=== PATIENT | male | born 1995 | race Two or more races ===

== ENCOUNTER 2019-05-04 18:53 | Emergency (ER) | payer OTHER ==
[~2019-05-04] VITALS: Ht 182.9 cm; Wt 72.7 kg
[2019-05-04] MEDS ORDERED: NAPR-885 PO (19:05)
[2019-05-04] MEDS ORDERED: OXYC15TA66 PO (19:05)
[2019-05-04] MEDS ORDERED: HYDR-3363 PO (19:05)
[2019-05-04] MEDS ORDERED: NS 1,000 ML IV ONE (19:15)
[2019-05-04 19:19] LABS: BASO % 0.3 % (0.0-1.0); EOS # 0.1 10^3/uL (0.0-0.5); EOS % 1.4 % (0.0-3.0); HEMATOCRIT 43.2 % (42.0-52.0); HEMOGLOBIN 14.2 g/dl (13.5-17.5); LYMPH # 3.2 10^3/uL (1.5-5.0); LYMPH % 32.6 % (24.0-44.0); MEAN CORPUSCULAR HGB CONC 32.9 g/dl (32.0-36.5); MEAN CORPUSCULAR VOLUME 88.2 fl (80.0-96.0); MONO # 0.8 10^3/uL (0.0-0.8); MONO % 7.5 % (0.0-5.0); NEUTROPHILS # 5.8 10^3/uL (1.5-8.5); PLATELET COUNT, AUTOMATED 314 10^3/uL (150-450); WHITE BLOOD COUNT 9.9 10^3/uL (4.0-10.0)
[2019-05-04] MEDS ORDERED: AMMONIA AROMATIC INHALANT (FLOOR STOCK) As Ordered ONE (19:52)
[2019-05-04 20:00] LABS: ACETAMINOPHEN LEVEL < 2.0 UG/ML (10.0-30.0); ALBUMIN 4.8 GM/DL (3.2-5.2); ALT/SGPT 24 U/L (12-78); BILIRUBIN,DIRECT < 0.1 MG/DL (0.0-0.2); BILIRUBIN,TOTAL 0.6 MG/DL (0.2-1.0); BLOOD UREA NITROGEN 18 MG/DL (7-18); CALCIUM LEVEL 9.3 MG/DL (8.5-10.1); CARBON DIOXIDE LEVEL 24 MEQ/L (21-32); CHLORIDE LEVEL 106 MEQ/L (98-107); CPK CREATINE PHOSPHOKINASE 257 U/L (39-308); CREATININE FOR GFR 0.94 MG/DL (0.70-1.30); ETHYL ALCOHOL (ETHANOL) < 0.003 % (0.000-0.010); GLOMERULAR FILTRATION RATE > 60.0 (>60); GLUCOSE, FASTING 93 MG/DL (70-100); POTASSIUM SERUM 3.5 MEQ/L (3.5-5.1); SALICYLATE LEVEL < 1.7 MG/DL (5.0-30.0); SODIUM LEVEL 139 MEQ/L (136-145); TOTAL PROTEIN 8.7 GM/DL (6.4-8.2)
[2019-05-04] MEDS ORDERED: LIDOCAINE 2% 5ML JELLY UROJET TOP ONE (20:15)
[2019-05-04 20:43] LABS: AMPHETAMINES LEVEL URINE NEGATIVE (NEGATIVE); BARBITURATES URINE NEGATIVE (NEGATIVE); BENZODIAZEPINES URINE NEGATIVE (NEGATIVE); CANNABINOIDS URINE NEGATIVE (NEGATIVE); COCAINE METABOLITE URINE NEGATIVE (NEGATIVE); METHADONE URINE NEGATIVE (NEGATIVE); OPIATES URINE NEGATIVE (NEGATIVE); PHENCYCLIDINE URINE NEGATIVE (NEGATIVE)
--- NOTE | 2019-05-04 21:38 | REPVR ---
PROCEDURE INFORMATION: Exam: CT Head Without Contrast Exam date and time: 05/04/2019 8:58 PM Clinical history: 23 years old, male; Altered mental status/memory loss; Confusion or disorientation; Additional info: Altered loc TECHNIQUE: Imaging protocol: Computed tomography of the head without contrast. Radiation optimization: All CT scans at this facility use at least one of these dose optimization techniques: automated exposure control; mA and/or kV adjustment per patient size (includes targeted exams where dose is matched to clinical indication); or iterative reconstruction. COMPARISON: No relevant prior studies available. FINDINGS: Brain: Normal. No hemorrhage. Unremarkable white matter. No mass effect. Ventricles: Normal. No ventriculomegaly. Bones/joints: Unremarkable. No acute fracture. Sinuses: Visualized sinuses are unremarkable. No fluid levels. Mastoid air cells: Visualized mastoid air cells are well aerated. Soft tissues: Unremarkable. IMPRESSION: Negative noncontrast head CT. Electronically signed by: Johnathon Dye On 05/04/2019 21:37:54 PM
[2019-05-04 22:00] VITALS: BP 142/73
--- NOTE | 2019-05-05 08:42 | ECGEPIP ---
[facility] - ED Test Date: 2019-05-04 Pat Name: LUBA LINTON Department: Room: - Gender: Male [place]: AYDEE : 1995 Requested By: SUKHDEEP CEDILLO Order Number: [id number] Reading MD: La Nena Storey Measurements Intervals [place] Rate: 78 P: 56 [place]: 184 QRS: 70 QRSD: 90 T: 55 QT: 346 QTc: 395 Interpretive Statements SINUS RHYTHM EARLY REPOLARIZATION, CLINICAL CORRELATION No prior Electronically Signed on 05-05-2019 8:41:32 EST by La Nena Storey
== END 2019-05-04 22:14 | disposition home or self-care (01) ==
LOC: M ED 18:53
DX: T39.311A Poisoning by propionic acid derivatives, accidental (unintentional), initial encounter (principal); Y92.9 Unspecified place or not applicable; Y93.9 Activity, unspecified; M25.569 Pain in unspecified knee; Z79.899 Other long term (current) drug therapy; Z88.8 Allergy status to other drugs, medicaments and biological substances
CPT/HCPCS: 36415; 51701; 70450; 80048; 80076; 80307; 82550; 84443; 85025; 93005; 93041; 94760; 96360; 96361; 99285; G0480

== ENCOUNTER 2019-05-09 18:52 | Inpatient (IN) | payer OTHER ==
[~2019-05-09] VITALS: Ht 182.9 cm; Wt 68.5 kg
[~2019-05-09 18:52] MED LIST: HYDR-3363 PO; NAPR-885 PO; OXYC15TA66 PO
[2019-05-09 20:07] LABS: HEMATOCRIT 42.1 % (42.0-52.0); HEMOGLOBIN 13.8 g/dl (13.5-17.5); MEAN CORPUSCULAR HEMOGLOBIN 29.4 pg (27.0-33.0); MEAN CORPUSCULAR HGB CONC 32.8 g/dl (32.0-36.5); MEAN CORPUSCULAR VOLUME 89.6 fl (80.0-96.0); PLATELET COUNT, AUTOMATED 316 10^3/uL (150-450); WHITE BLOOD COUNT 8.2 10^3/uL (4.0-10.0)
[2019-05-09 20:38] LABS: ACETAMINOPHEN LEVEL < 2.0 UG/ML (10.0-30.0); ALBUMIN 4.3 GM/DL (3.2-5.2); ALT/SGPT 29 U/L (12-78); BILIRUBIN,DIRECT 0.2 MG/DL (0.0-0.2); BILIRUBIN,TOTAL 0.9 MG/DL (0.2-1.0); BLOOD UREA NITROGEN 14 MG/DL (7-18); CALCIUM LEVEL 9.2 MG/DL (8.5-10.1); CARBON DIOXIDE LEVEL 26 MEQ/L (21-32); CHLORIDE LEVEL 105 MEQ/L (98-107); CREATININE FOR GFR 0.96 MG/DL (0.70-1.30); ETHYL ALCOHOL (ETHANOL) < 0.003 % (0.000-0.010); GLOMERULAR FILTRATION RATE > 60.0 (>60); GLUCOSE, FASTING 83 MG/DL (70-100); POTASSIUM SERUM 3.4 MEQ/L (3.5-5.1); SALICYLATE LEVEL < 1.7 MG/DL (5.0-30.0); SODIUM LEVEL 139 MEQ/L (136-145); TOTAL PROTEIN 8.3 GM/DL (6.4-8.2)
[2019-05-09 20:44] LABS: AMPHETAMINES LEVEL URINE NEGATIVE (NEGATIVE); BARBITURATES URINE NEGATIVE (NEGATIVE); BENZODIAZEPINES URINE NEGATIVE (NEGATIVE); CANNABINOIDS URINE NEGATIVE (NEGATIVE); COCAINE METABOLITE URINE NEGATIVE (NEGATIVE); METHADONE URINE NEGATIVE (NEGATIVE); OPIATES URINE NEGATIVE (NEGATIVE); PHENCYCLIDINE URINE NEGATIVE (NEGATIVE)
[2019-05-09] MEDS ORDERED: NAPR-885 PO (21:26)
[2019-05-09] MEDS ORDERED: HYDR-3363 PO (21:26)
[2019-05-09] MEDS ORDERED: POTASSIUM CHLORIDE 10 MEQ SR TABLET PO ONE (22:30)
[2019-05-09] MEDS ORDERED: MOM 30ML SUSPENSION UDC PO PRN (22:30)
[2019-05-09] MEDS ORDERED: MAALOX 30 ML SUSP *UDC PO PRN (22:30)
[2019-05-10 00:06] VITALS: BP 132/63
--- NOTE | 2019-05-10 00:23 | REP ---
Clinical: Epigastric and abdominal pain. Technique: Upright view of the chest with supine and upright views of the abdomen and pelvis. Findings: Frontal upright view of the chest demonstrates no acute cardiopulmonary process or free air below the diaphragm to suspect pneumoperitoneum. Supine and upright views of the abdomen and pelvis demonstrate nonspecific bowel gas pattern without obstruction or perforation. No organomegaly. No abnormal calcifications. Skeletal structures normal for age. Impression: Nonspecific bowel gas pattern. The Electronically Signed by Froylan Telles MD 05/10/2019 12:15 A
[2019-05-10 07:00] VITALS: BP 137/66
[2019-05-10] MEDS: PARoxetine 10MG TABLET PO SCH (09:00)
--- NOTE | 2019-05-10 15:26 | HPEPDOC ---
General Date of Admission May 09, 2019 at 22:30 Date of Service: May 10, 2019 Chief Complaint The patient is a 23-year-old male admitted with a reason for visit of Unspecified Depressive D/O. 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 He stated that the night before he Over dosed on hydoxyzine and naproxen but nothing happened and then he was thinking about shooting himself. So came to the ED for suicidal ideas. He was admitted to [facility] and I am seeing the patient here for medical history and physical. Today he complains of ppain in the upper abdomen epigastrium going on for 1 week, dull aching in nature, worse after meals about 5/10 in intensity associated with nausea. Also reports that has not had a bowel movement in 4 days , has poor appetite and is afrid to eat as it worsens the pain. Does not repot any vomiting or any loss of weight. Home Medications Scheduled PRN Hydroxyzine HCl (Hydroxyzine HCl) 25 Mg Tablet, 25 MG PO for ANXIETY, (Reported) Naproxen (Naproxen) 500 Mg Tablet, 500 MG PO BID PRN for PAIN, (Reported) Allergies Coded Allergies: mirtazapine (Verified Adverse Reaction, Unknown, nose bleed, 05/04/19) Past Medical History Medical History anxiety, depression Surgical History left knee surgery Family History Significant Family History: Cancer (mother adn maternal grandmother breat cancer, maternal grandmother also lung cancer), Heart disease (maternal grandfather) Social History * Smoker: Denies Alcohol: occationally Drugs: denies A-FIB/CHADSVASC A-FIB History Current/History of A-Fib/PAF?: No Review of Systems Constitutional: Denies: Chills, Fever, Night Sweats Eyes: Denies: Pain, Vision change ENT: Denies: Head Aches, Ear Pain, Dysphagia Skin: Denies: Rash, Lesions, Breakdown Pulmonary: Denies: Dyspnea, Cough Cardiovascular: Denies: Chest Pain, Palpitations, Orthopnea, Paroxysmal Noc. Dyspnea, Lt Headedness Gastrointestinal: Denies: Nausea, Vomiting, Abdominal Pain, Diarrhea Genitourinary: Denies: Dysuria, Frequency, Incontinence, Retention Hematologic: Denies: Bruising, Bleeding Excessively Musculoskeletal: Denies: Neck Pain, Back Pain, Joint Pain, Muscle Pain, Spasms Physical Examination General Exam: Positive: Alert, No Acute Distress Eye Exam: Positive: PERRLA, Conjunctiva & lids normal, EOMI; Negative: Sclera icteric ENT Exam: Positive: Atraumatic, Mucous membr. moist/pink, Pharynx Normal Neck Exam: Positive: Supple; Negative: JVD, thyromegaly Chest Exam: Positive: Clear to auscultation, Normal air movement Heart Exam: Positive: Rate Normal, Regular Rhythm, Normal S1, Normal S2; Negative: Murmurs, Rubs Abdomen Exam: Positive: Normal bowel sounds, Soft, Tenderness (in the epigastrium), Other (no guarding or rigidity); Negative: Hepatospenomegaly Extremity Exam: Positive: Normal pulses; Negative: Clubbing, Cyanosis, Edema Skin Exam: Positive: Nl turgor and temperature; Negative: Breakdown, Lesion Psych Exam: Positive: Anxiety, Memory Intact, Oriented x 3 Vital Signs Vital Signs Date Time Temp Pulse Resp B/P (MAP) Pulse Ox O2 Delivery O2 Flow Rate FiO2 05/10/19 07:00 99.1 72 16 137/66 (89) 05/10/19 00:06 Room Air 05/09/19 18:52 100 Laboratory Data Labs 24H Laboratory Tests 2 05/09/19 19:44: Nucleated Red Blood Cells % (auto) 0.0, Anion Gap 8, Glomerular Filtration Rate > 60.0, Calcium Level 9.2, Total Bilirubin 0.9, Direct Bilirubin 0.2, Aspartate Amino Transf (AST/SGOT) 30, Alanine Aminotransferase (ALT/SGPT) 29, Alkaline Phosphatase 113, Total Protein 8.3H, Albumin 4.3, Albumin/Globulin Ratio 1.08, Thyroid Stimulating Hormone (TSH) 1.300, Salicylates Level < 1.7L, Urine Opiates Screen NEGATIVE, Urine Methadone Screen NEGATIVE, Acetaminophen Level < 2.0L, Urine Barbiturates Screen NEGATIVE, Urine Phencyclidine Screen NEGATIVE, Urine Amphetamines Screen NEGATIVE, Urine Benzodiazepines Screen NEGATIVE, Urine Cocaine Metabolite Screen NEGATIVE, Urine Cannabinoids Screen NEGATIVE, Ethyl Alcohol Level < 0.003 CBC/BMP Laboratory Tests 05/09/19 19:44 Assessment/Plan 23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 He stated that the night before he Over dosed on hydoxyzine and naproxen but nothing happened and then he was thinking about shooting himself. So came to the ED for suicidal ideas. He was admitted to [facility] and I am seeing the patient here for medical history and physical. 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 He stated that the night before he Over dosed on hydoxyzine and naproxen but nothing happened and then he was thinking about shooting himself. So came to the ED for suicidal ideas. He was admitted to [facility] and I am seeing the patient here for medical history and physical. Today he complains of ppain in the upper abdomen epigastrium going on for 1 week, dull aching in nature, worse after meals about 5/10 in intensity associated with nausea. Abdominal pain AXR in the ED neg possibly peptic ulcer disease will start on pantoprozole and sucralfate. Psych issues as per psychiatry. Plan / VTE VTE Prophylaxis Ordered?: No (freely ambulatory) MIKE RAE MD May 10, 2019 08:01
[2019-05-10 16:20] VITALS: BP 127/81
[2019-05-10] MEDS: SUCRALFATE SUSP 1GM/10ML UD PO SCH ×2 (17:03→22:34)
--- NOTE | 2019-05-10 19:19 | MHHPE ---
DATE OF ADMISSION: 05/10/2019 CURRENT MEDICATIONS: None. CHIEF COMPLAINT: Suicidal ideation with overdose. 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 Patient has been feeling depressed for several months. Patient took an overdose of unspecified pills last week and was seen in the emergency room due to "intoxication." He claims that it was accidental. He was seen and released. He comes in today after taking another overdose of hydroxyzine and naproxen in a suicide attempt. He is disappointed that he survived. Patient has contemplated shooting himself. He does have access to arms periodically. Patient feels overwhelmed. He has multiple stressors. His mother is homeless in [place]. She is being treated for breast cancer with radiation and chemotherapy. His mother lives out of a car, along with his 7-year-old sister. Patient sends his mother most of his income from the [employer]. 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 He feels overwhelmed with his job. 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 He has no time for himself. His appetite is poor. He thinks that he has lost weight, but he is not sure. His concentration is fine. His level of energy and interest are down. Self-esteem is poor. He has trouble sleeping at night. He does have significant anxiety symptoms. He worries constantly. He cannot relax. He is always restless. He is taking the hydroxyzine for this condition. He fidgets constantly. He also has history of panic attacks with racing heart and palpitation with shortness of breath. Patient drinks at least 4-5 Monster Energy drinks per day. He also likes to consume Mountain Dew and Coca-Cola as well. Patient avoids crowded situations. Patient states he is a loner and has some social phobic symptoms. He avoids public speaking, for example. PAST PSYCHIATRIC HISTORY: Patient is being treated for anxiety symptoms at [employer] with hydroxyzine.' MEDICAL HISTORY: Injury to left knee/ACL. ALLERGIES: Patient claims to have an allergy to LORAZEPAM, causing nosebleeds (question). LEGAL HISTORY: Patient denies, CHEMICAL DEPENDENCY: Patient drinks alcohol socially. He has had a number of blackouts. He denies history of DWIs. SOCIAL HISTORY: Patient was born in [place]. His father was in the and traveled all over the country. He graduated high school in [place]. Patient has seven siblings scattered across the country. Relationship with them is not good. Relationship with his mother is good. Patient is a high school graduate. 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 FAMILY PSYCHIATRIC HISTORY: Patient denies. MENTAL STATUS EXAMINATION: Patient is alert, oriented, cooperative. Affect is sad. Mood depressed. Patient is highly anxious. The patient has suicidal ideation. Grooming and hygiene are fair. Patient is helpless and hopeless. The patient is not psychotic, not hearing voices. No signs of paranoia or thought disorder. No signs of cognitive deficits. Memory functions appear intact. LENGTH OF STAY: 7-10 days. ASSESSMENT: Patient appears to have a serious depressive disorder. He also reports multiple anxiety symptoms. He is self-medicating with high amounts of caffeine, which is likely aggravating his anxiety symptoms. DIAGNOSES: 1. Major depression, single episode. 2. Panic anxiety disorder with agoraphobia. 3. Generalized anxiety disorder. 4. Rule out social anxiety disorder. 5. Caffeine use disorder. PLAN: admission. Discontinue use of caffeinated beverages. Start a trial of Paxil to help with anxiety and depressive symptoms. Involve in hospital milieu. Staff to coordinate care with [facility] and to work on discharge planning. [facility]ENTER[facility]rya
[2019-05-10] MEDS: PANTOPRAZOLE 40MG TAB (PROTONIX) PO SCH (22:33)
[2019-05-11 06:01] VITALS: BP 123/62
[2019-05-11] MEDS: SUCRALFATE SUSP 1GM/10ML UD PO SCH ×4 (07:37→21:59)
[2019-05-11] MEDS: PARoxetine 10MG TABLET PO SCH (08:41)
[2019-05-11 16:23] VITALS: BP 138/68
[2019-05-11] MEDS: traZODone 50 MG TAB PO PRN (21:58)
[2019-05-11] MEDS: PANTOPRAZOLE 40MG TAB (PROTONIX) PO SCH (21:58)
[2019-05-12 05:57] VITALS: BP 146/65
[2019-05-12] MEDS: SUCRALFATE SUSP 1GM/10ML UD PO SCH ×4 (07:43→20:51)
--- NOTE | 2019-05-12 07:49 | MHIPN ---
DATE OF SERVICE: 05/11/2019 VITAL SIGNS: Temperature 97.7, pulse 79, respiration 18, blood pressure 123/62. CURRENT MEDICATION: - Paxil 10 mg daily a.m. HISTORY OF PRESENT ILLNESS: Patient still complains of some stomach pain. Patient was diagnosed with possible stomach ulcer/gastritis by the hospitalist. His recent overdose of medication might be contribute to these symptoms. His appetite is poor. Patient reports he has been vomiting periodically. He did sleep well last night. Patient still feels quite depressed with passive suicidal ideation. He feels helpless and hopeless at times. He worries about the future. He is drinking some wesley here so he is not going through major caffeine withdrawal. Patient has not been in touch with his family by phone. He would like to have the wireline field operator at [facility] visit, however. This is reviewed with the staff. MENTAL STATUS EXAMINATION: Patient is alert and oriented. Affect appears sad. Mood is moderately to severely depressed. He has had some passive suicidal thoughts which have come and gone but will be monitored closely. No signs of psychosis. No hearing voices. No paranoia or thought disorder. Grooming and hygiene appear good. Cognitive functions appear intact. DIAGNOSES: Major depression. Panic anxiety disorder with agoraphobia. Generalized anxiety disorder (ANALIA), rule out social anxiety disorder. Caffeine induced anxiety disorder. Rule out peptic ulcer/gastritis. PLAN: Obtain further input from hospitalist regarding GI symptoms. Monitor suicide potential closely. Continue use of Paxil for antidepressant and antianxiety benefits. Encourage involvement in hospital milieu.
[2019-05-12] MEDS: PARoxetine 10MG TABLET PO SCH (08:33)
[2019-05-12] MEDS ORDERED: diazePAM 2 MG TAB PO ONE (11:00)
[2019-05-12 16:11] VITALS: BP 125/62
[2019-05-12] MEDS: hydrOXYzine 25 MG TAB PO PRN (19:49)
[2019-05-12] MEDS: PANTOPRAZOLE 40MG TAB (PROTONIX) PO SCH (20:51)
[2019-05-12] MEDS: traZODone 50 MG TAB PO PRN (20:51)
[2019-05-13] MEDS: SUCRALFATE SUSP 1GM/10ML UD PO SCH ×5 (06:32→23:30)
[2019-05-13 06:41] VITALS: BP 123/56
--- NOTE | 2019-05-13 07:08 | MHIPN ---
DATE OF VISIT: 05/12/2019 VITAL SIGNS: Temperature 98.2, pulse 62, respirations 16, blood pressure 125/62. CURRENT MEDICATION: - Paxil 10 mg daily HISTORY OF PRESENT ILLNESS: The patient's stomach complaints have improved. He still reports anxiety. He fidgets constantly. He worries constantly He finds it hard to relax. He still reports moderate depression. He has had some passive suicidal thoughts; for example, he broke a tooth brush in half last night but did not harm himself. The staff confiscated it and are keeping him on close checks. The patient slept well last night with the trazodone. He is tolerating the Paxil well. MENTAL STATUS EXAM: The patient is alert, oriented and cooperative. He is slightly anxious, moderately depressed with passive suicidal thoughts. The patient is not psychotic. Grooming and hygiene appear good. Cognitive functions are within normal limits. DIAGNOSES: 1. Major depression. 2. Panic anxiety disorder with agoraphobia. 3. Generalized anxiety disorder (ANALIA). 4. Social anxiety disorder. 5. Caffeine induced anxiety disorder. PLAN: The patient is given one dose of Valium 2 mg. Started on trial of as needed Atarax. Increase Paxil to 20 mg daily. The staff to monitor mood and safety closely.
[2019-05-13] MEDS: hydrOXYzine 25 MG TAB PO PRN (08:42)
[2019-05-13] MEDS ORDERED: PARoxetine 20 MG TAB PO SCH (09:00)
--- NOTE | 2019-05-13 14:56 | MHIPN ---
DATE: 05/13/2019 Vital signs: Temperature: 99.4, pulse 55, respirations 16, blood pressure 123/56. CURRENT MEDICATION: - Paxil 20 mg every morning - hydroxyzine 25 mg every 4 hours as needed - trazodone 50 mg at bedtime HISTORY OF PRESENT ILLNESS: Patient was feeling more depressed yesterday evening, he had suicidal thoughts, he scratched his wrist with a broken toothbrush. He wrote a suicide note and gave it to staff. Patient was placed on one-to-one for his own safety. Patient states that the precipitating stressors was negative memories from the past. He has been on the Paxil for several days now. He reports feeling somewhat calmer on it and more mellow. His depression, however, is still quite high as his anxiety. He is sleeping better with the trazodone at night. We discussed nursing home care with a hospital transfer arranged by Sabrina Chavarria. His treatment plans concurs with this. Patient is agreeable. This plan will be presented to the [facility] staff who will discuss it with his chain of command. MENTAL STATUS EXAMINATION: Patient is alert, oriented, and cooperative. Patient is highly anxious today. Mood is more depressed with passive suicidal ideation. No signs of psychosis. Grooming and hygiene remain good. Cognitive functions are intact. Patient appears impulsive. He shows poor insight and poor judgment and is at risk to self in my opinion. DIAGNOSIS: Major depression. Panic anxiety disorder with agoraphobia. Generalized anxiety disorder. Social anxiety disorder. Caffeine induced anxiety disorder. PLAN: Increase Paxil to 30 mg per day. Continue one-on-one to monitor patient's safety.
[2019-05-13 15:28] VITALS: BP 119/67
[2019-05-13] MEDS: PANTOPRAZOLE 40MG TAB (PROTONIX) PO SCH ×2 (21:00→23:30)
[2019-05-13 23:30] VITALS: BP 123/79
[2019-05-13] MEDS: ACETAMINOPHEN TAB 650MG DOSE (2X325MG) PO PRN (23:31)
[2019-05-13 23:50] VITALS: BP 123/79
--- NOTE | 2019-05-13 23:52 | REPVR ---
PROCEDURE INFORMATION: Exam: CT Head Without Contrast Exam date and time: 05/13/2019 7:07 PM Clinical history: 23 years old, male; Injury or trauma; Fall; Initial encounter; Blunt trauma (contusions or hematomas) TECHNIQUE: Imaging protocol: Computed tomography of the head without contrast. Radiation optimization: All CT scans at this facility use at least one of these dose optimization techniques: automated exposure control; mA and/or kV adjustment per patient size (includes targeted exams where dose is matched to clinical indication); or iterative reconstruction. COMPARISON: CT Head without contrast 05/04/2019 8:57 PM FINDINGS: Brain: Normal. No hemorrhage. Unremarkable white matter. No mass effect. Ventricles: Normal. No ventriculomegaly. Bones/joints: Unremarkable. No acute fracture. Sinuses: Visualized sinuses are unremarkable. No fluid levels. Mastoid air cells: Visualized mastoid air cells are well aerated. Soft tissues: Unremarkable. IMPRESSION: No acute intracranial abnormality. Electronically signed by: Vidal Hernandez On 05/13/2019 23:52:26 PM
--- NOTE | 2019-05-14 00:49 | REPVR ---
PROCEDURE INFORMATION: Exam: CT Head Without Contrast Exam date and time: 05/14/2019 12:18 AM Clinical history: 23 years old, male; Pain; Headache; Additional info: Self inflicted banging of head 3x on desk TECHNIQUE: Imaging protocol: Computed tomography of the head without contrast. Radiation optimization: All CT scans at this facility use at least one of these dose optimization techniques: automated exposure control; mA and/or kV adjustment per patient size (includes targeted exams where dose is matched to clinical indication); or iterative reconstruction. COMPARISON: CT Head without contrast 2019-05-13 19:05 FINDINGS: Brain: Normal. No hemorrhage. Unremarkable white matter. No mass effect. Ventricles: Normal. No ventriculomegaly. Bones/joints: Unremarkable. No acute fracture. Sinuses: Visualized sinuses are unremarkable. No fluid levels. Mastoid air cells: Visualized mastoid air cells are well aerated. Soft tissues: Unremarkable. IMPRESSION: No acute intracranial abnormality. Electronically signed by: Thad Feldman On 05/14/2019 00:49:24 AM
[2019-05-14 06:50] VITALS: BP 130/68
[2019-05-14] MEDS: SUCRALFATE SUSP 1GM/10ML UD PO SCH ×4 (07:44→20:06)
[2019-05-14] MEDS: hydrOXYzine 25 MG TAB PO PRN (08:58)
[2019-05-14] MEDS ORDERED: PARoxetine 10MG TABLET PO SCH (09:00)
[2019-05-14] MEDS ORDERED: PARoxetine 20 MG TAB PO SCH (09:00)
[2019-05-14 18:14] VITALS: BP 156/81
[2019-05-14] MEDS: ACETAMINOPHEN TAB 650MG DOSE (2X325MG) PO PRN (18:55)
[2019-05-14] MEDS: PANTOPRAZOLE 40MG TAB (PROTONIX) PO SCH (20:06)
[2019-05-14] MEDS ORDERED: SENOKOT S TAB PO SCH (21:00)
[2019-05-14] MEDS ORDERED: MIRALAX *UNIT DOSE* 17GM PACKET PO SCH (21:00)
[2019-05-14 21:05] VITALS: BP 140/73
--- NOTE | 2019-05-14 21:15 | MHIPN ---
DATE: 05/14/2019 VITAL SIGNS: Temperature 98.4, pulse 74, respirations 12, blood pressure 130/68. CURRENT MEDICATIONS: - Paxil 30 mg every a.m. - trazodone 50 mg at bedtime (hs) HISTORY OF PRESENT ILLNESS: The patient still reports episodic suicidal thoughts. The major trigger is his worry about the future and concerns about his family, he has suicidal thoughts, but no active intent. The patient likes the Paxil. He reports some slight decrease in his anxiety. He states the depression is not quite as severe either. He reports long standing social phobic symptoms. He also gets panicky in group situations, so he avoids them. He feels that Paxil has been helpful in this regard. The patient is aware of plans for transfer to [facility]. 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 The patient looked at the pamphlet in the facility and was positive about it. The patient does appear to be helpful. The patient will be seen by Dr. Bose tomorrow. MENTAL STATUS EXAMINATION: The patient is alert, oriented and cooperative. The patient is still quite anxious with moderate depression. The patient still reports passive suicidal ideation, but no active intent. The patient is nonpsychotic. Grooming and hygiene appear good. Cognitive functions are within normal limits. Insight and judgment are fair. The patient has potential risk to himself. DIAGNOSES: 1. Major depression. 2. Panic 3. Anxiety disorder. 4. Agoraphobia. 5. Generalized anxiety disorder. 6. Social anxiety disorder. 7. Caffeine induce anxiety disorder. PLAN: Continue present management. Staff working on transfer to [facility] care facility. Continue one-on-one supervision.
[2019-05-14 23:09] LABS: BASO % 0.2 % (0.0-1.0); EOS # 0.2 10^3/uL (0.0-0.5); EOS % 2.2 % (0.0-3.0); HEMOGLOBIN 13.5 g/dl (13.5-17.5); LYMPH # 2.8 10^3/uL (1.5-5.0); LYMPH % 32.3 % (24.0-44.0); MEAN CORPUSCULAR HEMOGLOBIN 28.8 pg (27.0-33.0); MEAN CORPUSCULAR HGB CONC 32.9 g/dl (32.0-36.5); MEAN CORPUSCULAR VOLUME 87.4 fl (80.0-96.0); MONO # 0.9 10^3/uL (0.0-0.8); NEUTROPHILS # 4.8 10^3/uL (1.5-8.5); NEUTROPHILS % 55.1 % (36.0-66.0); PLATELET COUNT, AUTOMATED 313 10^3/uL (150-450); RED BLOOD COUNT 4.69 10^6/uL (4.30-6.10); WHITE BLOOD COUNT 8.6 10^3/uL (4.0-10.0)
[2019-05-14 23:24] LABS: ALBUMIN 3.8 GM/DL (3.2-5.2); ALT/SGPT 20 U/L (12-78); BILIRUBIN,TOTAL 0.4 MG/DL (0.2-1.0); BLOOD UREA NITROGEN 18 MG/DL (7-18); CALCIUM LEVEL 8.7 MG/DL (8.5-10.1); CARBON DIOXIDE LEVEL 25 MEQ/L (21-32); CHLORIDE LEVEL 106 MEQ/L (98-107); CREATININE FOR GFR 1.01 MG/DL (0.70-1.30); GLOMERULAR FILTRATION RATE > 60.0 (>60); GLUCOSE, FASTING 114 MG/DL (70-100); POTASSIUM SERUM 3.5 MEQ/L (3.5-5.1); SODIUM LEVEL 140 MEQ/L (136-145); TOTAL PROTEIN 7.8 GM/DL (6.4-8.2)
--- NOTE | 2019-05-14 23:24 | REPVR ---
PROCEDURE INFORMATION: Exam: XR Abdomen, 1 View Exam date and time: 05/14/2019 10:51 PM Age: 23 years old Clinical history: Abdominal pain; Flank; Left; Additional info: Left flank pain TECHNIQUE: Imaging protocol: XR of the abdomen. Views: Frontal supine view of the abdomen. 1 View. COMPARISON: CR Abdomen,Flat Upright,PA CHEST 05/09/2019 8:07 PM FINDINGS: Gastrointestinal tract: Large fecal loading of the rectum and colon. No bowel dilatation or obstruction. Bones/joints: Unremarkable for age. No abnormal calcification is seen. IMPRESSION: Large fecal loading of the rectum and colon. No bowel dilatation or obstruction. No abnormal calcification is seen. Electronically signed by: Camelia Veloz On 05/14/2019 23:24:29 PM
--- NOTE | 2019-05-15 07:31 | IPNPDOC ---
Text Note Date of Service The patient was seen on 05/15/19. NOTE S: Pt examined at bedside. Reporting left-sided flank pain describes as sharp, nonradiating. Has decreased appetite and feels nauseous. Per reports, no recent changes in meds. No fevers or chills. Reports a loose bowel movement yesterday, however no other GI complaints. Pain aggravated with movement and laying on that side. Alleviated with rest. PE: Vitals: see below General: NAD, A&Ox3, sleeping comfortably HEENT: NCAT, EOMI, anicteric sclera, MMM, no jaundice CV: RRR, no murmurs RESP: CTAB, no w/r/r/ ABD: soft, ND. Benign. Tender to palpation in the left upper and lower quadrants, and to deep palpation under the right rib cage. Negative CVA tenderness MSK: Strength intact throughout. No spinal tenderness EXTREMITIES: 2+ radial pulses b/l, able to move all extremities NEURO: no deficits or focal changes A/P: 31-year-old male in [facility] for suicidal ideation, hospitalist called for abdominal pain: 1. Abdominal pain: Labs obtained her negative for acute concerns. Imaging reveals large fecal stasis on the left side of abdomen, consistent with his symptoms. Bowel regimen ordered and discussed with his staff to administer now, and to discharge with bowel regimen. He should follow-up with his PCP should his symptoms not improve. H. pylori testing also ordered, however pending at the time of his discharge today. 2. Psychiatric illness: As per psych VS,Fishbone, I+O VS, Fishbone, I+O Laboratory Tests 05/14/19 22:48 Vital Signs Date Time Temp Pulse Resp B/P (MAP) Pulse Ox O2 Delivery O2 Flow Rate FiO2 05/14/19 21:05 99.0 107 20 140/73 (95) 99 Room Air GME ATTESTATION GME ATTESTATION My faculty preceptor for this patient encounter was physically present during the encounter and was fully available. All aspects of the patient interview, examination, medical decision making process, and medical care plan development were reviewed and approved by the faculty preceptor. The faculty preceptor is aw are and concurs with the plan as stated in the body of this note and will attest to such by his/her cosignature. FELICITAS VILA 20, 2019 07:31
[2019-05-15 08:43] LABS: H PYLORI QUALITATIVE IgG NEGATIVE (NEGATIVE)
--- NOTE | 2019-05-15 10:50 | MHDS ---
DATE OF ADMISSION: 05/09/2019 DATE OF DISCHARGE: 05/15/2019 Vital signs: Temperature 98.4, pulse 74, respiration 12, blood pressure 130/68. LABS: CBC and differential within normal limits. Serum chemistry within normal limits. Toxicology screen negative alcohol and negative for urine tox screen. DISCHARGE DIAGNOSIS: Major depression. Panic anxiety disorder with agoraphobia. Generalized anxiety disorder. Social anxiety disorder. CHIEF COMPLAINT: Suicidal ideation with overdose. 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 Patient has been feeling depressed for several months. Patient took an overdose of unspecified pills last week and was seen in the emergency room due to intoxication. He was seen and released. He took another overdose of hydroxyzine and Naprosyn in a suicide attempt. Patient is disappointed that he survived. He had contemplated shooting himself. He has multiple stressors. His mother is in [place]. She has been treated for breast cancer with radiation and chemotherapy. He spends most of his income from the [employer] to his mother. Patient has an injury to his left ACL due to an injury in basic training. He feels overwhelmed with his job, he has no time for himself. Patient has significant anxiety symptoms. He also abuses caffeinated beverages. He drinks 4 to 5 [employer] per day. Her reports social phobic symptoms. He has a history of panic attacks. He worries constantly. PROGRESS ON THE UNIT: Patient was started on Paxil 10 mg by mouth every morning which was increased gradually as tolerated, medication was tolerate well. He continued with high levels of anxiety. He worries about his family in [place]. He worries about this future in the [employer]. This anxiety and worry is a trigger for suicidal thoughts. Patient had a number of superficial suicidal behaviors attempting to scratch himself with a broken toothbrush for example. He wrote a suicide note and gave it to staff. Patient appears to have some borderline personality characteristics. Patient appeared appropriate for retirement care. His chain of command agreed. Patient himself felt positive about such a transfer after reading the pamphlet from the facility. MENTAL STATUS EXAMINATION: At time of discharge mood and affect appeared still quite anxious with moderate to severe depression. He had passive suicidal ideation, but no active intent. Grooming and hygiene were fair. Insight and judgment were poor. No signs of psychosis. Cognitive functions intact. ASSESSMENT: Patient appeared appropriate for retirement care facility and will be transferred under [employer] guard first thing tomorrow morning at 4 a.m. PLAN: Discharge to chain of command tomorrow morning. ADDENDUM: Patient discharge summary is dictated the day prior to discharge per recommendation of staff.
== END 2019-05-15 03:30 | DRG 881 ==
LOC: M ED 18:52 → M ED INP 22:30 → M PSY 23:42
PROVIDERS: ADMIT Psychiatry & Neurology Psychiatry; ATTEND Psychiatry & Neurology Addiction Medicine
DX: F32.9 Major depressive disorder, single episode, unspecified (principal); R45.851 Suicidal ideations; F41.1 Generalized anxiety disorder; F40.01 Agoraphobia with panic disorder; Z88.8 Allergy status to other drugs, medicaments and biological substances; Z79.899 Other long term (current) drug therapy

== ENCOUNTER 2019-06-21 14:23 | Emergency (ER) | payer OTHER ==
[~2019-06-21] VITALS: Ht 185.4 cm; Wt 74.4 kg
[2019-06-21] MEDS ORDERED: DIAZ5TAB PO (14:36)
[2019-06-21] MEDS ORDERED: PARO20TA4 PO (14:36)
[2019-06-21 15:06] LABS: HEMATOCRIT 43.2 % (42.0-52.0); HEMOGLOBIN 14.1 g/dl (13.5-17.5); MEAN CORPUSCULAR HEMOGLOBIN 29.3 pg (27.0-33.0); MEAN CORPUSCULAR HGB CONC 32.6 g/dl (32.0-36.5); MEAN CORPUSCULAR VOLUME 89.6 fl (80.0-96.0); PLATELET COUNT, AUTOMATED 322 10^3/uL (150-450); RED BLOOD COUNT 4.82 10^6/uL (4.30-6.10); WHITE BLOOD COUNT 7.2 10^3/uL (4.0-10.0)
[2019-06-21 15:54] LABS: ACETAMINOPHEN LEVEL < 2.0 UG/ML (10.0-30.0); ALBUMIN 4.3 GM/DL (3.2-5.2); ALT/SGPT 25 U/L (12-78); BILIRUBIN,DIRECT 0.2 MG/DL (0.0-0.2); BILIRUBIN,TOTAL 0.7 MG/DL (0.2-1.0); BLOOD UREA NITROGEN 19 MG/DL (7-18); CARBON DIOXIDE LEVEL 25 MEQ/L (21-32); CHLORIDE LEVEL 106 MEQ/L (98-107); CREATININE FOR GFR 1.18 MG/DL (0.70-1.30); ETHYL ALCOHOL (ETHANOL) < 0.003 % (0.000-0.010); GLOMERULAR FILTRATION RATE > 60.0 (>60); GLUCOSE, FASTING 93 MG/DL (70-100); POTASSIUM SERUM 3.8 MEQ/L (3.5-5.1); SALICYLATE LEVEL < 1.7 MG/DL (5.0-30.0); SODIUM LEVEL 139 MEQ/L (136-145); THYROID STIMULATING HORMONE 0.493 uIU/ML (0.358-3.740); TOTAL PROTEIN 8.2 GM/DL (6.4-8.2)
[2019-06-21 17:47] LABS: AMPHETAMINES LEVEL URINE NEGATIVE (NEGATIVE); BARBITURATES URINE NEGATIVE (NEGATIVE); BENZODIAZEPINES URINE POSITIVE (NEGATIVE); CANNABINOIDS URINE NEGATIVE (NEGATIVE); COCAINE METABOLITE URINE NEGATIVE (NEGATIVE); METHADONE URINE NEGATIVE (NEGATIVE); OPIATES URINE NEGATIVE (NEGATIVE); PHENCYCLIDINE URINE NEGATIVE (NEGATIVE)
[2019-06-21] MEDS ORDERED: HYDR50TA30 PO (18:17)
[2019-06-21] MEDS ORDERED: hydrOXYzine 50 MG TAB PO STA (23:13)
[2019-06-21] MEDS ORDERED: diazePAM 5 MG TAB PO ONE (23:15)
[2019-06-22 21:22] VITALS: BP 137/86
--- NOTE | 2019-06-23 15:19 | ECGEPIP ---
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
== END 2019-06-22 21:24 | disposition short-term general hospital (02) ==
LOC: M ED 14:23
DX: F43.0 Acute stress reaction (principal); R45.851 Suicidal ideations; R00.1 Bradycardia, unspecified; Z79.899 Other long term (current) drug therapy; Z88.8 Allergy status to other drugs, medicaments and biological substances
CPT/HCPCS: 80048; 80076; 80307; 84443; 85027; 93005; 99285; G0480